=== PATIENT | male | born 1985 | race Two or more races ===

== ENCOUNTER 2018-05-26 08:13 | Emergency (ER) | payer BC, OTHER ==
[~2018-05-26] VITALS: Ht 170.2 cm; Wt 75.1 kg
[2018-05-26 08:21] VITALS: BP 132/75
--- NOTE | 2018-05-26 09:18 | NUR ---
WET TO DRY DRESSING IN PLACE PER . SUPPLIES TO PT TO DO WET TO DRY DRESSINGS AT HOME TID PER DR COY. PT EDUCATED ON DRESSING CHANGES, NO QUESTIONS.
== END 2018-05-26 09:30 | disposition home or self-care (01) ==
LOC: ED 09:26
DX: T81.31XA Disruption of external operation (surgical) wound, not elsewhere classified, initial encounter (principal); Z87.891 Personal history of nicotine dependence
CPT/HCPCS: 99281; 99282

== ENCOUNTER 2020-08-07 16:53 | Emergency (ER) | payer OTHER ==
[~2020-08-07] VITALS: Ht 170.2 cm; Wt 79.9 kg
--- NOTE | 2020-08-07 18:20 | NUR ---
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
[2020-08-07] MEDS ORDERED: LIDOCAINE-MPF 1%, 5ML ONE (19:00)
[2020-08-07] MEDS ORDERED: L.E.T SOLUTION TP ONE (19:00)
[2020-08-07] MEDS ORDERED: MICROFIBRILLAR COLLAGEN 1 GM TP ONE (19:06)
[2020-08-07] MEDS ORDERED: MICROFIBRILLAR COLLAGEN 0.5GM/PACK TP STA (19:06)
--- NOTE | 2020-08-07 19:16 | NUR ---
PT TO ROOM 26 W/ C/O LAC TO L INDEX FINGER. GAUZE OVER LAC NOTED TO BE HEAVY W/ BLEEDING. GAUZE REMOVED AND LAC NOTED TO BE BLEEDING PROFUSELY W/ PT PULSE. [facility] [place] NOTIFIED. EDPA AT BEDSIDE. L INDEX FINGER CLEANED AND EDCHUN KUMAR AT BEDSIDE PERFORMING LIDO AND SUTURE PLACEMENT TO CONTROL BLEEDING. Addendum: 08/07/20 at 1918 by NURY PT STATES HE GOT LAC W/ PLIERS WHILE AT WORK TODAY AND CAME IMMEDIATELY TO ED. LAST TETANUS SHOT 2 YRS AGO.
--- NOTE | 2020-08-07 19:26 | NUR ---
STITCHES COMPLETED BY EDPA KUMAR. PT BLEEDING CONTROLLED.
[2020-08-07] MEDS ORDERED: NEOSPORIN OINT. PKT 1 PACKET ONE (20:03)
[2020-08-07 20:16] VITALS: BP 124/68
--- NOTE | 2020-08-07 20:16 | NUR ---
PT RESTING ON GURNEY. NADN. GARZA.
== END 2020-08-07 20:57 | disposition home or self-care (01) ==
LOC: ED 20:44
DX: S61.211A Laceration without foreign body of left index finger without damage to nail, initial encounter (principal); S54.02XA Injury of ulnar nerve at forearm level, left arm, initial encounter; X58.XXXA Exposure to other specified factors, initial encounter; Y93.89 Activity, other specified; Y92.69 Other specified industrial and construction area as the place of occurrence of the external cause; Y99.8 Other external cause status
CPT/HCPCS: 12041; 99284

== ENCOUNTER 2020-08-17 20:20 | Emergency (ER) | payer OTHER ==
[~2020-08-17] VITALS: Ht 170.2 cm; Wt 79.1 kg
[2020-08-17 20:24] VITALS: BP 126/60
== END 2020-08-17 21:35 | disposition home or self-care (01) ==
LOC: ED 21:30
DX: S61.211D Laceration without foreign body of left index finger without damage to nail, subsequent encounter (principal); Z87.891 Personal history of nicotine dependence; X58.XXXD Exposure to other specified factors, subsequent encounter
CPT/HCPCS: 99281